=== PATIENT | male | born 1950 | race African-American/Black ===

== ENCOUNTER 2016-06-26 17:56 | Emergency (ER) | payer MEDICARE ==
[~2016-06-26 17:56] MED LIST: ASAB PO; BETAPACE80 PO; CLARIT10 PO; CYANO1000T PO; NIACIN 500 PO; NIASPAN500 PO; PRAVAC PO; PRAVACHOL40 MG PO; TUMSROLL PO; VITAMIN B-121000 MC1 SL; XARELTO20 MG PO
[2016-09-10] MEDS ORDERED: ZYRTEC ALLGY10 MG PO (02:31)
[2016-09-10] MEDS ORDERED: AT25 PO (02:31)
[2016-09-10] MEDS ORDERED: KENCR.1 TOP (02:32)
[2016-09-10] MEDS ORDERED: PEP20 PO (02:32)
[2016-09-10] MEDS ORDERED: [UNRECOGNIZED DRUG - OTHER] PO (02:33)
[2016-09-10] MEDS ORDERED: CENTRUM PO (02:33)
[2016-09-10] MEDS ORDERED: FLEXI JOIN1 PO (02:34)
[2016-09-13] MEDS ORDERED: MOMUD PO (11:40)
[2016-09-13] MEDS ORDERED: METAMUCIL CAN7 OZ PO (11:41)
[2016-09-13] MEDS ORDERED: L20 PO (11:42)
[2016-09-13] MEDS ORDERED: KDUR20 PO (11:43)
== END 2016-06-26 18:41 | disposition home or self-care (01) ==
LOC: ER 17:56
DX: L30.9 Dermatitis, unspecified (principal); I10 Essential (primary) hypertension; Z87.01 Personal history of pneumonia (recurrent); Z95.1 Presence of aortocoronary bypass graft; L29.9 Pruritus, unspecified; Z79.82 Long term (current) use of aspirin; Z79.899 Other long term (current) drug therapy
CPT/HCPCS: 96372; 99282; J1200